=== PATIENT | female | born 1950 | race African-American/Black ===

== ENCOUNTER 2023-07-05 09:47 | Emergency (ER) | payer MEDICARE, SELFPAY ==
--- NOTE | ~2023-07-05 | XR_ITS ---
XR hip LT min 2V 07/05/2023 10:15 Indication: Left hip pain Procedure: 2 views left hip Comparison: No prior studies for comparison. Findings: There is mild osteoarthritis of the left hip. No fracture, subluxation or dislocation. No s oft tissue abnormality. No foreign bodies. Impression: 1: Mild osteoarthritis of the left hip. Reviewed, dictated and finalized at location A. Impression: 1: Mild osteoarthritis of the left hip.
[2023-07-05 09:56] VITALS: BP 101/80; PULSE 114; RESP 20; TEMP 36.7; O2SAT 97
[2023-07-05 10:06] VITALS: BP 101/80; PULSE 114; RESP 20; TEMP 36.7; O2SAT 97
--- NOTE | 2023-07-05 10:15 | ED.LOWEXIN ---
HPI - Extremity Injury (Lower) General Chief Complaint: Extremity Injury, Upper Stated Complaint: left hip swollen History of Present Illness HPI Narrative: PATIENT PRESENTS WITH LEFT HIP PAIN PATIENT REPORTS TRIPPING OVER HER GARDEN HOSE LAST NIGHT AND LANDING ON HER LEFT HIP. BRUISING AND SWELLING TO AREA. Related Data Home Medications Medication Instructions Recorded Confirmed citalopram 20 mg tablet 20 mg PO DAILY 07/05/23 07/05/23 furosemide 20 mg tablet 20 mg PO DIRECTED 07/05/23 07/05/23 metoprolol succinate 50 mg 50 mg PO DIRECTED 07/05/23 07/05/23 tablet,extended release 24 hr potassium chloride 10 mEq 10 meq PO DIRECTED 07/05/23 07/05/23 tablet,extended release(part/cryst) Allergies Allergy/AdvReac Type Severity Reaction Status Date / Time No Known Allergies Allergy Verified 07/05/23 10:04 Review of Systems Review of Systems: CONSTITUTIONAL: DENIES FEVER, CHILLS, OR SWEATS. EYES: DENIES VISUAL CHANGES, REDNESS, OR DISCHARGE. ENT: DENIES RHINORRHEA, CONGESTION, SORE THROAT, OR OTALGIA. CARDIOVASCULAR: DENIES CHEST PAIN, PALPITATIONS, OR EDEMA. RESPIRATORY: DENIES COUGH OR DYSPNEA. GASTROINTESTINAL: DENIES ABDOMINAL PAIN, NAUSEA, VOMITING, OR DIARRHEA. GENITOURINARY: DENIES DYSURIA OR HEMATURIA. SKIN: DENIES RASH OR ITCHING. MUSCULOSKELETAL: DENIES BACK PAIN, JOINT PAIN, OR MYALGIA. NEUROLOGIC: DENIES HEADACHE, NUMBNESS, OR WEAKNESS. PSYCHIATRIC: DENIES ANXIETY OR DEPRESSION. PMFSH Comments AT TIME OF SIGNATURE, AGREE WITH NURSING PAST MEDICAL, SURGICAL, SOCIAL AND FAMILY HISTORY. THERE IS NO RELEVANT FAMILY HISTORY PERTINENT TO THE PRESENTING COMPLAINT Exam Narrative: GENERAL: WELL-APPEARING, WELL-NOURISHED, AND IN NO ACUTE DISTRESS. HEAD: NORMOCEPHALIC, ATRAUMATIC. EYES: PERRLA AND EOMI. ENT: NARES CLEAR, NO RHINORRHEA OR EPISTAXIS. MUCOUS MEMBRANES MOIST. NECK: SUPPLE. CHEST: CLEAR TO AUSCULTATION. NO RESPIRATORY DISTRESS. HEART: REGULAR RATE AND RHYTHM. NO MURMUR HEARD. NORMAL PERIPHERAL PULSES. ABDOMEN: SOFT, NONTENDER, NONDISTENDED, NORMAL ACTIVE BOWEL SOUNDS. EXTREMITIES: NORMAL RANGE OF MOTION. NO EDEMA. HIP EXAM - SKIN INTACT. BRUISING TO LEFT HIP , NO REDNESS SLIGHTLY SWOLLEN . NO INGUINAL MASSES OR LYMPHADENOPATHY. NO INGUINAL TENDERNESS, ANTERIOR OR LATERAL HIP TENDERNESS. NO BUTTOCK OR SI JOINT TENDERNESS. HAS NORMAL FLEXION, EXTENSION, AND ROTATION OF HIP BACK EXAM - NO VERTEBRAL POINT SPECIFIC TENDERNESS OR STEP OFFS. NORMAL ROM OF BACK. NORMAL FLEXION AND EXTENSION OF BACK. NO CVA TENDERNESS. LEG EXAM - NO CALF OR ANKLE SWELLING, DISCOLORATION. NORMAL FOOT SENSATION AND CAP REFILL. NORMAL DP PULSE. SKIN: WARM, DRY, NO RASH. NEURO: NO FOCAL DEFICITS. ALERT AND ORIENTED X3. DG COMA SCALE EYE OPENING: SPONTANEOUS 4 DG COMA SCALE MOTOR: OBEYS COMMANDS 6 DG COMA SCALE VERBAL: ORIENTED 5 DG COMA SCALE TOTAL 15 Course Course Level of Care: Express Care Visit Vital Signs Vital signs: Vital Signs Temperature 36.7 C 07/05/23 09:56 Pulse Rate 114 H 07/05/23 09:56 Respiratory Rate 20 07/05/23 09:56 Blood Pressure 101/80 07/05/23 09:56 Pulse Oximetry 97 07/05/23 09:56 Oxygen Delivery Room Air 07/05/23 09:56 Temperature 36.7 C 07/05/23 10:06 Pulse Rate 114 H 07/05/23 10:06 Respiratory Rate 20 07/05/23 10:06 Blood Pressure 101/80 07/05/23 10:06 Pulse Oximetry 97 07/05/23 10:06 Oxygen Delivery Room Air 07/05/23 10:06 MDM - Extremity Injury (Lower) Imaging Data Radiologist's impression: MILD OSTEOARTHRITIS OF LEFT HIP Discharge Plan Discharge Clinical Impression: Hip injury, Injury of hip, left, Superficial bruising of hip Patient Disposition: Home, Self-Care Condition: Stable Instructions: Hip Contusion (ED), Osteoarthritis (ED) Additional Instructions: ICE TO THE AREA 20-30 MINUTES 4-6 TIMES A DAY USE CANE OR WALKER NEEDED TYLENOL FOR LESSER PAIN IBUPROFEN REGULARLY
== END 2023-07-05 10:22 | disposition home or self-care (01) ==
PROVIDERS: Emergency Provider Nurse Practitioner Family; PCP Family Medicine
DX: S70.02XA Contusion of left hip, initial encounter (principal); W18.09XA Striking against other object with subsequent fall, initial encounter; I10 Essential (primary) hypertension
CPT/HCPCS: 73502; 99213; G0463